=== PATIENT | female | born 1950 | race Caucasian/White ===

== ENCOUNTER 2025-07-03 12:22 | Inpatient (IN) ==
[2025-07-03] MEDS ORDERED: IOPAMIDOL 100 ML BOTTLE IV ONE (12:23)
[2025-07-03 13:14] LABS: Basophils # (Auto) 0.02 K/mcL (0.00-0.30); Basophils % (Auto) 0.4 % (0.0-2.0); Eosinophils # (Auto) 0.07 K/mcL (0.00-0.70); Eosinophils % (Auto) 1.4 % (0.0-7.0); Hematocrit 41.4 % (34.1-44.9); Hemoglobin 13.1 g/dL (11.2-15.7); Lymphocytes # (Auto) 1.54 K/mcL (1.50-4.80); Lymphocytes % (Auto) 30.1 % (15.5-49.0); Mean Corpuscular HGB Conc 31.6 g/dL (31.0-36.0); Monocytes # (Auto) 0.42 K/mcL (0.10-0.90); Monocytes % (Auto) 8.2 % (1.0-12.0); Neutrophils % (Auto) 59.9 % (38.0-78.0); Platelet Count 191 K/mcL (140-440); RBC 4.45 M/mcL (3.59-5.38); WBC 5.1 K/mcL (4.5-11.0)
[2025-07-03 13:25] LABS: INR 1.2 (0.9-1.1); Partial Thromboplastin Time 35.1 sec (20.0-37.0); Prothrombin Time 16.9 sec (11.9-14.5)
[2025-07-03 13:34] LABS: ALT/SGPT 13 U/L (<40); AST/SGOT 17 U/L (<32); Albumin 4.1 gm/dL (3.2-5.2); Albumin/Globulin Ratio 1.5 (1.0-2.3); Alkaline Phosphatase 98 U/L (39-117); Anion Gap 10.0 (8.0-16.0); Bilirubin,Total 0.4 mg/dL (0.1-1.0); Blood Urea Nitrogen 17 mg/dL (8-23); Calcium 9.2 mg/dL (8.6-10.4); Carbon Dioxide 26 mmol/L (22-30); Chloride 107 mmol/L (96-108); Globulin 2.8 gm/dL (2.2-3.7); Glucose 109 mg/dL (70-105); Potassium 4.0 mmol/L (3.3-5.1); Sodium 143 mmol/L (133-145)
[2025-07-03 13:47] LABS: Bilirubin,Urine NEGATIVE (Negative); Color,Urine LT. YELLOW; Glucose,Urine (UA) NEGATIVE (Negative); Ketones,Urine NEGATIVE (Negative); Leukocyte Esterase,Urine NEGATIVE /uL (Negative); PH,Urine 6.5 (5.0-9.0); Protein,Urine NEGATIVE (Negative); Specific Gravity,Urine <= 1.005 (1.000-1.035); Urobilinogen,Urine 0.2 mg/dL
[2025-07-03] MEDS: ASPIRIN 81 MG TAB.CHEW CHEWED ONE (13:57)
[2025-07-03] MEDS: MECLIZINE 25 MG TABLET PO ONE (13:57)
[2025-07-03] MEDS ORDERED: LABETALOL HCL 20 MG/4 ML VIAL IV PRN (16:40)
[2025-07-03] MEDS ORDERED: ENALAPRILAT 1.25 MG/ML VIAL IV PRN (16:40)
[2025-07-03 17:09] LABS: HDL Cholesterol 53.0 mg/dL (>40); LDL Cholesterol,Calculated 67.0 mg/dL (<100); Triglycerides 157.0 mg/dL (<150)
[2025-07-03 17:10] LABS: Estimated Average Glucose(eAG) 111.0 mg/dL; Hemoglobin A1C 5.5 % Hgb (4.0-6.0)
[2025-07-03] MEDS: 0.9 % SODIUM CHLORIDE 10 ML SYRINGE IV SCH (21:02)
[2025-07-03] MEDS: ONDANSETRON 4 MG/2 ML VIAL IV PRN (21:02)
[2025-07-03] MEDS: HEPARIN SOD,PORK IN 0.45% NACL 500 ML IV SCH (21:02)
[2025-07-03] MEDS: SENNOSIDES 1 TABLET PO SCH (21:08)
[2025-07-04] MEDS: APIXABAN 5 MG TABLET PO SCH (12:25)
[2025-07-05] MEDS: ACETAMINOPHEN 325 MG TABLET PO PRN (05:23)
[2025-07-05] MEDS: PROPRANOLOL 10 MG TABLET PO SCH (08:20)
[2025-07-05] MEDS: ATORVASTATIN 20 MG TABLET PO SCH ×2 (08:20→20:38)
[2025-07-05] MEDS ORDERED: ROSUVASTATIN 10 MG TABLET PO SCH (09:00)
[2025-07-05] MEDS: LOSARTAN 25 MG TABLET PO SCH ×2 (11:20→20:38)
[2025-07-05] MEDS: KETOROLAC TROMETHAMINE 1 GTT BOTTLE BOTH EYES SCH ×2 (11:21→20:41)
[2025-07-05] MEDS: LATANOPROST OPHTH DROPS 2.5ML BOTTLE OU SCH ×2 (11:21→20:38)
[2025-07-06 15:46] VITALS: O2SAT 95
[2025-07-06 16:41] VITALS: TEMP 97.7
== END 2025-07-06 19:18 | disposition home health service (06) | DRG 93 ==
LOC: ED 12:22 → ICU 16:36 → MEDSUR 07-06 07:50
PROVIDERS: ADMIT Internal Medicine; ATTEND Internal Medicine